=== PATIENT | female | born 1950 | race Caucasian/White ===

== ENCOUNTER 2022-03-19 00:27 | Inpatient (IN) | payer MEDICARE, OTHER ==
[2022-03-19] MEDS ORDERED: Promethazine HCl 25 MG/ML VIAL IM PRN (01:49)
[2022-03-19] MEDS ORDERED: Ondansetron PF 4 MG/2 ML Vial IVP PRN (01:49)
[2022-03-19] MEDS ORDERED: hydrALAZINE 20 MG/ML VIAL SLOW IVP PRN (01:49)
[2022-03-19 01:51] VITALS: BMI 29.5
[2022-03-19] MEDS: Acetaminophen 500 MG TAB PO SCH ×4 (02:13→21:22)
[2022-03-19] MEDS ORDERED: Morphine 2 MG/ML VIAL SLOW IVP PRN (02:37)
[2022-03-19 04:02] LABS: #Lymphocytes 1.2 thou/uL (1.20-3.40); #Monocytes 0.6 thou/uL (0.11-0.59); #Neutrophils 10.4 thou/uL (1.40-6.50); %Basophils 0.3 % (0.0-1.0); %Eosinophils 0.2 % (0.0-10.0); %Monocytes 4.7 % (0.0-10.0); %Neutrophils 84.8 % (42.0-75.0); Hemoglobin 12.6 g/dL (12.0-16.0); Mean Corpuscular HGB CONC 34.4 g/dL (32.0-36.0); Mean Corpuscular Volume 95.9 fL (78.0-98.0); Mean Platelet Volume 7.7 fL (7.4-10.4); Platelet Count 246 thou/uL (130-400); RBC Distribution Width 12.1 % (11.5-14.5); Red Blood Cell (RBC) Count 3.81 mill/uL (4.20-5.40); White Blood Cell (WBC) Count 12.3 thou/uL (4.8-10.8)
[2022-03-19 04:14] LABS: PTT 31.9 sec (22.9-36.1); Prothrombin Time 13.6 sec (12.0-14.7)
[2022-03-19 04:17] LABS: Phosphorus 4.2 mg/dL (2.3-4.7)
[2022-03-19 04:25] LABS: Anion Gap 17 mmol/L (10-20); BUN (Urea Nitrogen) 9 mg/dL (9.8-20.1); Calc. Creatinine Clearance 99 mL/min (70-130); Calcium 9.5 mg/dL (7.8-10.44); Carbon Dioxide 26 mmol/L (23-31); Chloride 94 mmol/L (98-107); Glucose 141 mg/dL (83-110); Magnesium 1.7 mg/dL (1.6-2.6); Potassium 3.6 mmol/L (3.5-5.1); Sodium 133 mmol/L (136-145)
[2022-03-19] MEDS ORDERED: Acetaminophen 500 MG TAB PO SCH (05:45)
[2022-03-19] MEDS ORDERED: Levothyroxine Sodium 88 MCG TAB PO SCH (07:30)
[2022-03-19] MEDS ORDERED: Magnesium Sulfate 3 GM in Sodium Chloride 0.9% 100 ML IVPB SCH (08:00)
[2022-03-19] MEDS: Senokot S 8.6-50 MG TAB PO SCH ×2 (08:36→21:22)
[2022-03-19] MEDS: Citalopram 20 MG TAB PO SCH (08:36)
[2022-03-19] MEDS: Famotidine 20 MG TAB PO SCH ×2 (08:36→21:22)
[2022-03-19] MEDS: Rosuvastatin 20 MG TAB PO SCH (08:36)
[2022-03-19] MEDS: Amlodipine 5 MG TAB PO SCH (08:36)
[2022-03-19] MEDS: Polyethylene Glycol 3350 17 GM Packet PO SCH (08:37)
[2022-03-19] MEDS ORDERED: Potassium Chloride 20 MEQ TAB PO SCH (09:00)
[2022-03-19] MEDS ORDERED: Scopolamine 1.5 mg/72 hour Patch TD SCH (09:45)
[2022-03-19] MEDS: Dexamethasone 4 mg/ml Vial SLOW IVP SCH ×2 (09:45→17:45)
[2022-03-19] MEDS ORDERED: Dextrose 5% in Water 1,000 ML IV PRN (13:24)
[2022-03-19] MEDS ORDERED: Dextrose 50% Abboject 50 ML SYRINGE SLOW IVP PRN (13:24)
[2022-03-19] MEDS ORDERED: HumaLOG 300 UNITS/3 ML VIAL SC PRN (13:24)
[2022-03-19] MEDS: Oxazepam 10 MG CAP PO SCH ×2 (14:08→21:22)
[2022-03-20] MEDS: Dexamethasone 4 mg/ml Vial SLOW IVP SCH ×2 (00:04→09:04)
[2022-03-20] MEDS: Acetaminophen 500 MG TAB PO SCH ×2 (01:23→06:34)
[2022-03-20] MEDS ORDERED: Potassium Chloride 20 MEQ in Premix Bag 1 BAG IVPB ONE (01:49)
[2022-03-20] MEDS ORDERED: Magnesium 2 GM/50 ML(in water) 3 GM in Premix Bag 1 BAG IVPB SCH (02:00)
[2022-03-20] MEDS: Oxazepam 10 MG CAP PO SCH (05:47)
[2022-03-20] MEDS ORDERED: Levothyroxine Sodium 88 MCG TAB PO SCH (06:00)
[2022-03-20 07:20] LABS: Anion Gap 13 mmol/L (10-20); BUN (Urea Nitrogen) 11 mg/dL (9.8-20.1); Calc. Creatinine Clearance 91 mL/min (70-130); Calcium 10.3 mg/dL (7.8-10.44); Carbon Dioxide 30 mmol/L (23-31); Chloride 98 mmol/L (98-107); Glucose 187 mg/dL (83-110); Magnesium 2.2 mg/dL (1.6-2.6); Phosphorus 2.9 mg/dL (2.3-4.7); Potassium 4.4 mmol/L (3.5-5.1); Sodium 137 mmol/L (136-145)
[2022-03-20] MEDS: Citalopram 20 MG TAB PO SCH (08:49)
[2022-03-20] MEDS: Rosuvastatin 20 MG TAB PO SCH (08:49)
[2022-03-20] MEDS: Senokot S 8.6-50 MG TAB PO SCH (08:51)
[2022-03-20] MEDS: Famotidine 20 MG TAB PO SCH (08:52)
[2022-03-20] MEDS: Amlodipine 5 MG TAB PO SCH (08:52)
[2022-03-20] MEDS: Polyethylene Glycol 3350 17 GM Packet PO SCH (08:55)
[2022-03-20] MEDS ORDERED: Hydrochlorothiazide 25 MG TAB PO SCH (09:00)
[2022-03-20] MEDS ORDERED: Losartan 25 MG TAB PO SCH (09:00)
[2022-03-20] MEDS ORDERED: Folic Acid 1 MG TAB PO SCH (09:00)
[2022-03-20] MEDS ORDERED: Thiamine 100 MG TAB PO SCH (09:00)
[2022-03-20 11:49] VITALS: BP 150/63; TEMP 97.8
[2022-03-22] MEDS ORDERED: Scopolamine 1.5 mg/72 hour Patch TD SCH (09:00)
== END 2022-03-20 11:40 | disposition home or self-care (01) | DRG 86 ==
LOC: CCU 01:33 → SURG A 12:15
PROVIDERS: ADMIT Specialist; ATTEND Surgery
DX: S06.6X0A Traumatic subarachnoid hemorrhage without loss of consciousness, initial encounter (principal); E87.1 Hypo-osmolality and hyponatremia; W19.XXXA Unspecified fall, initial encounter; I10 Essential (primary) hypertension; E03.9 Hypothyroidism, unspecified; E11.9 Type 2 diabetes mellitus without complications; E87.6 Hypokalemia; E83.42 Hypomagnesemia; T50.2X5A Adverse effect of carbonic-anhydrase inhibitors, benzothiadiazides and other diuretics, initial encounter; T43.225A Adverse effect of selective serotonin reuptake inhibitors, initial encounter; Y92.9 Unspecified place or not applicable; Z90.710 Acquired absence of both cervix and uterus; Y92.009 Unspecified place in unspecified non-institutional (private) residence as the place of occurrence of the external cause; Z90.49 Acquired absence of other specified parts of digestive tract
CPT/HCPCS: 36415; 36416; 70450; 80048; 83735; 84100; 85025; 85610; 85730; J1100; J2270; J2405; J2550; J3475; J3490

== ENCOUNTER 2022-04-08 22:07 | Emergency (ER) | payer MEDICARE | END 2022-04-08 23:57 | disposition home or self-care (01) | LOC: ERS 22:07 | DX: S01.00XA Unspecified open wound of scalp, initial encounter (principal); E78.5 Hyperlipidemia, unspecified; I10 Essential (primary) hypertension; Z79.899 Other long term (current) drug therapy; X58.XXXA Exposure to other specified factors, initial encounter | CPT/HCPCS: 70450 ==